=== PATIENT | male | born 1950 | race Caucasian/White ===

== ENCOUNTER 2017-05-12 11:44 | Outpatient (CLI) | payer OTHER ==
--- NOTE | 2017-05-12 13:32 | DIAGNOSTIC IMAGING REPORT ---
PROCEDURE: XR MAJOR JT INJ OR ASPIRATION INDICATION: OA LEFT HIP TECHNIQUE: Written informed consent was obtained from the patient prior to the procedure. Risks discussed included but were not limited to bleeding, infection, injury to adjacent structures, pain, temporary anesthesia, and allergic reaction. It was agreed to proceed. Supine position with left hip internally rotated. Preliminary fluoroscopic imaging demonstrated complete joint space loss with progression of subchondral cystic formation and spurring. There is now slight irregularity of superior femoral head shape. An appropriate skin entry site was chosen and marked. The skin was prepped and draped in the usual sterile fashion. Skin and subcutaneous tissue was anesthetized thoroughly with 1% lidocaine. Under intermittent fluoroscopic guidance, a 22 gauge needle was directed into superolateral left hip joint. Intra-articular position was confirmed with injection of Isovue 200. Following this, a 7 ml mixture of 2 ml 40 mg/ml Kenalog, 2 ml 1% lidocaine, 3 ml 0.5% bupivacaine was injected. Total fluoro time 0.4 minutes. Cumulative dose 182.80 mGy. A single fluoroscopic image was acquired documenting the needle in position within the joint space. Following complete injection, needle was removed, hemostasis was achieved, the skin was cleansed, and a sterile bandage was applied. The patient was helped off the table. The patient left the radiology department in stable condition with standard post procedure instructions. COMPARISON: 12/12/2015 FINDINGS: Severe arthritic change, progressed from the prior study. Intra-articular position of the needle confirmed with injection of contrast. IMPRESSION: 1. Successful therapeutic left hip arthrogram. 2. Severe left hip arthritic change, progressed compared to the prior study.
== END 2017-05-12 23:00 | disposition home or self-care (01) ==
LOC: XR SRH 11:44
PROC: BQ011ZZ Plain Radiography of Left Hip using Low Osmolar Contrast (ICD-10-PCS; principal; 2017-05-12)
PROC: BQ111ZZ Fluoroscopy of Left Hip using Low Osmolar Contrast (ICD-10-PCS; principal; 2017-05-12)
DX: M16.12 Unilateral primary osteoarthritis, left hip (principal)
CPT/HCPCS: 82445